=== PATIENT | male | born 1960 | race Caucasian/White ===

== ENCOUNTER 2021-10-06 14:31 | Emergency (ER) | payer MEDICAID ==
[~2021-10-06 14:31] MED LIST: epiNEPHrine 0.1mg/ml 10ml syringe ONE; sod chloride 0.9% 10ml flush syringe IV ONE; sodium bicarbonate (8.4%) 1 mEq/ml syringe ONE
--- NOTE | 2021-10-06 14:35 | NUR ---
Pt arrived with CPR in progress, I GEL airway est. prior to arrival and has received 13 rounds of shock for pulseless fine V-Fib per EMS report. Dr. Juan, RT, ACLs RN and ED severity of illness coordinator in pt room upon pt arrival.
--- NOTE | 2021-10-06 15:00 | NUR ---
Pt pronounce TOD [id number] by MD. Maxi Juan.
--- NOTE | 2021-10-06 16:40 | NUR ---
pt determined as advanced practice registered nurse case and will be arriving to take pt.
--- NOTE | 2021-10-06 17:26 | NUR ---
Pt body released to mechanical fitter.
== END 2021-10-06 14:44 ==
LOC: ER 14:31
DX: I46.9 Cardiac arrest, cause unspecified (principal); I49.01 Ventricular fibrillation
CPT/HCPCS: 31500; 82948; 92950; 99285; J0171